=== PATIENT | female | born 1960 | race Caucasian/White ===

== ENCOUNTER 2018-03-28 05:17 | Emergency (ER) | payer MEDICAID ==
[~2018-03-28] VITALS: Ht 165.1 cm; Wt 54.4 kg
[2018-03-28 05:22] VITALS: BP 106/69
[2018-03-28] MEDS ORDERED: LEVO100T8 PO (06:08)
[2018-03-28] MEDS ORDERED: BUPR75TA9 PO (06:08)
[2018-03-28] MEDS ORDERED: METH2.5T3 PO (06:08)
[2018-03-28] MEDS ORDERED: HYDR-4683 PO (06:08)
[2018-03-28] MEDS ORDERED: CLON2TAB6 PO (06:08)
[2018-03-28] MEDS ORDERED: AMPH20TA20 PO (06:08)
[2018-03-28] MEDS ORDERED: HYDR-4441 OR (06:08)
[2018-03-28] MEDS ORDERED: FOLI1TAB6 PO (06:08)
[2018-03-28] MEDS ORDERED: AZAT50TA22 PO (06:08)
[2018-03-28] MEDS ORDERED: GABA-339 PO (06:08)
[2018-03-28 08:00] LABS: Eosinophils # (auto) 0.1 uL; Lymphocytes # (auto) 0.7 uL; Red Cell Distribution Width 15.9 % (11.8-14.3)
[2018-03-28 08:01] LABS: Basophils # (auto) 0 uL; Basophils % (auto) 1.1 % (0.0-2.0); Eosinophils % (auto) 2.2 % (0.0-7.0); Hematocrit 37.2 % (36.0-46.0); Lymphocytes % (auto) 17.2 % (10.0-50.0); Mean Corpuscular Hemoglobin 41.9 pg (28.0-32.0); Monocytes # (auto) 0.2 uL; Monocytes % (auto) 6.2 % (0.0-12.0); Neutrophils % (auto) 73.3 % (37.0-80.0); Platelet Count (auto) 331 10^3/uL (140-450); Red Blood Cells 3.58 10^6/uL (4.0-5.20)
[2018-03-28 08:13] LABS: Alanine Aminotransferase 14 U/L (13-56); Albumin 3.8 g/dL (3.4-5.0); Anion Gap 8 (5-15); Aspartate Aminotransferase 18 U/L (15-37); BUN/Creatinine Ratio 30.2; Blood Alcohol < 3.0 mg/dL (0-5); Blood Urea Nitrogen 26 mg/dL (7-18); Carbon Dioxide 24 mmol/L (21-32); Chloride 103 mmol/L (98-107); GFR African American 87 mL/min; GFR Non-African American 72 mL/min; Glucose 90 mg/dL (74-106); INR 1.03 (0.9-1.15); Magnesium 2.2 mg/dL (1.6-2.6); Partial Thromboplastin Time 23.4 sec (23.78-33.04); Potassium 3.7 mmol/L (3.5-5.1); Sodium 135 mmol/L (136-145)
[2018-03-28 08:14] LABS: Mean Corpuscular Hgb Conc. 40.3 g/dL (32.0-36.0); White Blood Cell 4.1 10^3/uL (4.4-10.8)
[2018-03-28 08:21] LABS: Alkaline Phosphatase 65 U/L (45-117); Bilirubin, Total 0.7 mg/dL (0.2-1.0); Total Protein 8.7 g/dL (6.4-8.2)
== END 2018-03-28 10:21 | disposition left against medical advice (07) ==
LOC: ER 05:17 → EDBD 05:17 → ER 10:20
DX: R40.4 Transient alteration of awareness (principal); Z53.21 Procedure and treatment not carried out due to patient leaving prior to being seen by health care provider
CPT/HCPCS: 36415; 70450; 71045; 80053; 80320; 83605; 83735; 84484; 85025; 85610; 85730

== ENCOUNTER 2019-10-11 09:11 | Inpatient (IN) | payer MEDICAID ==
[~2019-10-11] VITALS: Ht 162.6 cm; Wt 52.0 kg
[~2019-10-11 09:11] MED LIST: AMPH20TA20 PO; AZAT50TA22 PO; BUPR75TA9 PO; CLON-707 PO; FOLI1TAB6 PO; GABA-339 PO; HYDR-4188 OR; HYDR-4833 PO; LEVO100T8 PO; METH2.5T PO
[2019-10-11] MEDS ORDERED: SODIUM CHLORIDE 0.9% 500 ML IVB ONE (09:55)
[2019-10-11] MEDS ORDERED: SODIUM CHLORIDE 0.9% 1,000 ML IV ONE (09:55)
[2019-10-11 09:58] LABS: Basophils # (auto) 0.1 10 ^3/uL (0-0.2); Basophils % (auto) 0.9 % (0.0-2.0); Eosinophils # (auto) 0 10 ^3/uL (0-0.8); Eosinophils % (auto) 0.6 % (0.0-7.0); Hemoglobin 12.6 g/dL (12.2-16.2); Lymphocytes # (auto) 1.8 10 ^3/uL (0.4-5.4); Lymphocytes % (auto) 27.7 % (10.0-50.0); Mean Corpuscular Hemoglobin 28.3 pg (28.0-32.0); Mean Corpuscular Hgb Conc. 32.3 g/dL (32.0-36.0); Mean Corpuscular Volume 87.6 fL (80.0-100.0); Monocytes # (auto) 0.4 10 ^3/uL (0-1.3); Monocytes % (auto) 6.8 % (0.0-12.0); Neutrophils # (auto) 4.2 10 ^3/uL (1.6-8.6); Nucleated Red Blood Cells % 0.2 %; Platelet Count (auto) 360 10^3/uL (140-450); Red Blood Cells 4.46 10^6/uL (4.0-5.20); White Blood Cell 6.6 10^3/uL (4.4-10.8)
[2019-10-11 10:11] LABS: INR 1.21 (0.9-1.15); Partial Thromboplastin Time 26.4 sec (23.0-31.2)
[2019-10-11 10:16] LABS: Albumin 3.2 g/dL (3.4-5.0); Calcium 9.1 mg/dL (8.5-10.1); Magnesium 2.1 mg/dL (1.6-2.6); Potassium 3.6 mmol/L (3.5-5.1)
[2019-10-11 10:21] LABS: BUN/Creatinine Ratio 22.6; Bilirubin, Total 0.6 mg/dL (0.2-1.0); Total Protein 6.8 g/dL (6.4-8.2)
[2019-10-11 10:36] LABS: Urine Bacteria NONE SEEN /hpf (None Seen); Urine Blood Negative /uL (Negative); Urine Mucus FEW (None Seen); Urine Specific Gravity 1.018 (1.001-1.035); Urine WBC 8 /hpf (0 - 5)
[2019-10-11] MEDS ORDERED: cefTRIAXone 1GM/50ML D5W 50 ML IV ONE (11:30)
[2019-10-11] MEDS ORDERED: MORPHINE SULF INJ 2 MG/ML SYRINGE 1ML IV PRN (17:15)
[2019-10-11] MEDS ORDERED: NITROGLYCERIN 0.4 MG SL TAB SL PRN (17:15)
[2019-10-11] MEDS: SODIUM CHLORIDE 0.9% 1,000 ML IV SCH (17:59)
[2019-10-11] MEDS ORDERED: ONDANSETRON HCL 4 MG/2 ML VIAL IV PRN (22:15)
[2019-10-12] MEDS: PANTOPRAZOLE 40 MG/10 ML VIAL INJ IV SCH ×3 (00:04→21:17)
--- NOTE | 2019-10-12 00:04 | NUR ---
Telemetry admit from [facility] admitted to Telemetry unit after SBAR received. Patient oriented to Javier Wong, primary RN, unit, room, bed, and unit policies regarding patient care and visiting hours. Patient now on continuous telemetry monitoring, tele box # [89] and telemetry reading on arrival to unit is [SR 60]. Patient weighed by bedscale and encouraged to call if they need something. All questions and concerns addressed, patient verbalized understanding. Note: []
[2019-10-12] MEDS: ATORVASTATIN 20 MG TAB PO SCH ×2 (00:05→21:17)
[2019-10-12] MEDS: GABAPENTIN 300 MG CAP PO SCH ×2 (00:05→21:17)
[2019-10-12 00:06] VITALS: BP 134/76
[2019-10-12] MEDS: HYDROcodone-ACET 5/325MG TAB PO PRN ×2 (00:06→21:43)
[2019-10-12] MEDS ORDERED: ROPI1TAB2 PO (00:49)
[2019-10-12] MEDS ORDERED: TRAZ1TAB12 PO (00:49)
--- NOTE | 2019-10-12 03:05 | NUR ---
PATIENT SLEEPING. NO S/S OF DISTRESS NOTED. CONTINUE CARE
[2019-10-12] MEDS: SODIUM CHLORIDE 0.9% 1,000 ML IV SCH ×2 (04:15→13:44)
[2019-10-12 05:00] VITALS: BP 129/64
[2019-10-12 06:04] LABS: Basophils # (auto) 0 10 ^3/uL (0-0.2); Basophils % (auto) 0.7 % (0.0-2.0); Eosinophils # (auto) 0.1 10 ^3/uL (0-0.8); Eosinophils % (auto) 1.7 % (0.0-7.0); Hematocrit 31.8 % (36.0-46.0); Hemoglobin 10.6 g/dL (12.2-16.2); Lymphocytes # (auto) 2.2 10 ^3/uL (0.4-5.4); Lymphocytes % (auto) 31.6 % (10.0-50.0); Mean Corpuscular Hemoglobin 29.2 pg (28.0-32.0); Mean Corpuscular Hgb Conc. 33.5 g/dL (32.0-36.0); Mean Corpuscular Volume 87.2 fL (80.0-100.0); Monocytes # (auto) 0.5 10 ^3/uL (0-1.3); Monocytes % (auto) 8.1 % (0.0-12.0); Neutrophils % (auto) 57.9 % (37.0-80.0); Nucleated Red Blood Cells % 0.1 %; Platelet Count (auto) 300 10^3/uL (140-450); Red Blood Cells 3.64 10^6/uL (4.0-5.20); Red Cell Distribution Width 15.6 % (11.8-14.3); White Blood Cell 6.8 10^3/uL (4.4-10.8)
[2019-10-12 06:24] LABS: Calcium 8.3 mg/dL (8.5-10.1)
[2019-10-12 06:43] LABS: Potassium 2.7 mmol/L (3.5-5.1)
--- NOTE | 2019-10-12 06:46 | NUR ---
RECEIVED CRITICAL FROM [facility] JORGE LUIS, POTASSIUM 2.7, WILL CALL MD CLEANING. CONTINUE TO MONITOR.
--- NOTE | 2019-10-12 06:47 | NUR ---
Called/paged Dr. CLEANING called re:PATIENT'S CRITICAL POTASSIUM 2.7. Waiting for call back. Continue care.
--- NOTE | 2019-10-12 06:56 | NUR ---
MD returned call Dr. CRESPO ANSWERED call, updated on patient status and reason for call, orders received. POTASSIUM 40MEG IV AND 40 MEQ PO. ORDER READ BACK. Continue care.
[2019-10-12] MEDS ORDERED: POTASSIUM CHL 20 Meq TABLET PO ONE (07:30)
[2019-10-12] MEDS: POTASSIUM CHL 20MEQ/100ML 100 ML IV SCH ×2 (08:19→11:30)
[2019-10-12] MEDS: ASPirin 81 mg TAB PO SCH (08:21)
[2019-10-12 09:00] VITALS: BP 142/74
[2019-10-12] MEDS ORDERED: INFLUENZA QUAD 2020-2021 0.5 ML SYRG IM ONE (10:45)
--- NOTE | 2019-10-12 11:30 | NUR ---
Nutrition Consult Will monitor po intake and tolerance of intake Est energy needs [id number] kcal (30-35 kcal/kg BW 51.7kg) Est protein needs 41-52g (0.8-1g/kg BW 51.7kg) Will reassess prn. Addendum: 10/12/19 at [address] Amended: Links added.
[2019-10-12 13:00] VITALS: BP 126/66
[2019-10-12] MEDS: levoFLOXacin 500MG 100 ML IV SCH (13:00)
--- NOTE | 2019-10-12 13:35 | NUR ---
Vero covid -19 swab collect and sent to lab.
[2019-10-12 14:40] LABS: Potassium 3.5 mmol/L (3.5-5.1)
[2019-10-12 14:42] LABS: Magnesium 1.9 mg/dL (1.6-2.6)
[2019-10-12] MEDS: SUCRALFATE 1 GM/10 ML ORAL SUSP PO SCH ×2 (16:51→21:17)
--- NOTE | 2019-10-12 16:53 | NUR ---
DOCTOR HERMILA AT BEDSIDE DISCUSSING POC WITH PATIENT, PATIENT VERBALIZES UNDERSTANDING AND AGREES WITH POC.
--- NOTE | 2019-10-12 16:56 | NUR ---
Doctor Jesus mar, per Md patient has cardiac clearance for EGD.
[2019-10-12 17:00] VITALS: BP 143/89
--- NOTE | 2019-10-12 20:00 | NUR ---
Opening Shift Note Assumed care of patient, awake and alert. No S/S of distress/SOB or pain. Instructed on POC and to call for assist PRN, will continue to monitor for changes Q1hr and PRN.Advised no food or drink after midnight.
[2019-10-12 21:49] VITALS: BP 148/84
[2019-10-13] MEDS: SODIUM CHLORIDE 0.9% 1,000 ML IV SCH (00:37)
[2019-10-13 05:05] VITALS: BP 132/76
[2019-10-13] MEDS: SUCRALFATE 1 GM/10 ML ORAL SUSP PO SCH ×2 (05:56→11:22)
[2019-10-13 06:05] LABS: Basophils # (auto) 0 10 ^3/uL (0-0.2); Basophils % (auto) 0.8 % (0.0-2.0); Eosinophils # (auto) 0.3 10 ^3/uL (0-0.8); Eosinophils % (auto) 5.1 % (0.0-7.0); Hematocrit 33.2 % (36.0-46.0); Hemoglobin 11.2 g/dL (12.2-16.2); Lymphocytes # (auto) 1.7 10 ^3/uL (0.4-5.4); Lymphocytes % (auto) 30.7 % (10.0-50.0); Mean Corpuscular Hemoglobin 28.5 pg (28.0-32.0); Mean Corpuscular Hgb Conc. 33.7 g/dL (32.0-36.0); Mean Corpuscular Volume 84.7 fL (80.0-100.0); Monocytes # (auto) 0.4 10 ^3/uL (0-1.3); Neutrophils # (auto) 3.1 10 ^3/uL (1.6-8.6); Neutrophils % (auto) 56.4 % (37.0-80.0); Nucleated Red Blood Cells % 0.2 %; Platelet Count (auto) 267 10^3/uL (140-450); Red Blood Cells 3.91 10^6/uL (4.0-5.20); Red Cell Distribution Width 15.3 % (11.8-14.3); White Blood Cell 5.4 10^3/uL (4.4-10.8)
[2019-10-13 06:25] LABS: BUN/Creatinine Ratio 15.3; Calcium 8.2 mg/dL (8.5-10.1); Magnesium 1.9 mg/dL (1.6-2.6)
[2019-10-13 06:32] LABS: Potassium 2.9 mmol/L (3.5-5.1)
--- NOTE | 2019-10-13 06:33 | NUR ---
Called/paged Hermilo Lott called re:patients pot. is 2.9 . Waiting for call back. Continue care.
--- NOTE | 2019-10-13 06:39 | NUR ---
returned call Carlos Orta returned call, updated on patient status and reason for call, orders received of potassium rider 20meq x one. Continue care.
[2019-10-13] MEDS ORDERED: POTASSIUM CHL 20MEQ/100ML 100 ML IV ONE (06:45)
--- NOTE | 2019-10-13 07:21 | NUR ---
Care report given to Isa Zacarias, patient is resting NPO maintained.
--- NOTE | 2019-10-13 07:23 | NUR ---
Care report given to Jerilyn Zacarias, patient is resting NPO maintain ed.
[2019-10-13 09:00] VITALS: BP 126/72
--- NOTE | 2019-10-13 09:15 | NUR ---
PATIENT TAKEN DOWN TO OR FOR PROCEDURE.NO S/S OF DISTRESS NOTED.
[2019-10-13] MEDS ORDERED: LIDOCAINE VISCOUS 2% 15ML UD ONE (09:38)
[2019-10-13] MEDS ORDERED: SODIUM CHLORIDE LOCK 10 ML ONE (09:38)
[2019-10-13] MEDS ORDERED: NALOXONE HCL 0.4 MG/ML VIAL ONE (09:38)
[2019-10-13] MEDS ORDERED: FLUMAZENIL 0.1 MG/ML INJ 10ML MDV IV ONE (09:38)
[2019-10-13] MEDS ORDERED: diphenhdrAMINE HCL 50 MG/1 ML VL ONE (09:39)
[2019-10-13] MEDS: fentaNYL CITRATE 100 MCG/2 ML VL ONE ×2 (09:54→09:59)
[2019-10-13] MEDS: MIDAZOLAM HCL 5 MG/ML-1ML VIAL ONE ×2 (09:54→09:59)
[2019-10-13] MEDS: ASPirin 81 mg TAB PO SCH (10:00)
[2019-10-13] MEDS ORDERED: ATOR20TA50 PO (10:09)
[2019-10-13] MEDS ORDERED: PANT40T PO (10:09)
[2019-10-13] MEDS ORDERED: SUCR1SUS10 PO (10:09)
--- NOTE | 2019-10-13 10:45 | NUR ---
Patient back from OR. No S/S of distress noted.
--- NOTE | 2019-10-13 10:50 | NUR ---
SPOKE WITH DOCTOR HERMILA INFORMED THAT STRESS TEST WAS NOT DONE, PER MD PATIENT TO HAVE STRESS TEST OUT PATIENT SCHEDULE BY PATIENT.PER MD PATIENT OKAY TO BE D/C.
[2019-10-13] MEDS: levoFLOXacin 500MG 100 ML IV SCH (11:22)
[2019-10-13 12:00] VITALS: BP 159/94
--- NOTE | 2019-10-13 15:33 | NUR ---
Discharge instructions given as ordered. Encourage to follow up with PMD as instructed. All questions and concerns addressed. Patient verbalized understanding. Medication reconciliation form completed and copy given to patient. IV removed with catheter intact, pressure dressing applied. Telemetry unit returned to ICU. Patient taken to vehicle via wheelchair with all personal belongings, accompanied by staff. Family members waiting in front lobby for transportation home. No distress noted at time of departure.
[2019-10-13] MEDS ORDERED: PANTOPRAZOLE 40 MG TAB PO SCH (22:00)
== END 2019-10-13 15:26 | disposition home or self-care (01) | DRG 241 ==
LOC: EDBD 09:11 → ER 09:11 → TELE 09:12 → TELE-WESTW 23:22
PROVIDERS: ADMIT Hospitalist; ATTEND Hospitalist
PROC: 0DB68ZX Excision of Stomach, Via Natural or Artificial Opening Endoscopic, Diagnostic (ICD-10-PCS; principal; 2019-10-13 09:52)
DX: K29.71 Gastritis, unspecified, with bleeding (principal); M06.9 Rheumatoid arthritis, unspecified; N39.0 Urinary tract infection, site not specified; E44.1 Mild protein-calorie malnutrition; Z20.828 Contact with and (suspected) exposure to other viral communicable diseases; F32.9 Major depressive disorder, single episode, unspecified; D64.9 Anemia, unspecified; E87.6 Hypokalemia; E86.1 Hypovolemia; E87.0 Hyperosmolality and hypernatremia; F17.210 Nicotine dependence, cigarettes, uncomplicated; E11.21 Type 2 diabetes mellitus with diabetic nephropathy; E05.90 Thyrotoxicosis, unspecified without thyrotoxic crisis or storm; Z68.1 Body mass index [BMI] 19.9 or less, adult; Z86.73 Personal history of transient ischemic attack (TIA), and cerebral infarction without residual deficits; Z82.49 Family history of ischemic heart disease and other diseases of the circulatory system; Z90.710 Acquired absence of both cervix and uterus; Z79.899 Other long term (current) drug therapy; N17.0 Acute kidney failure with tubular necrosis
CPT/HCPCS: 36415; 43239; 71045; 80048; 80053; 81001; 83690; 83735; 83880; 84132; 84439; 84443; 84484; 85025; 85610; 85730; 86850; 86900; 86901; 87426; 93005; 93306; 96361; 96365; 96367; 97163; C9113; G0378; J0696; J1956; J2250; J3480

== ENCOUNTER → 2019-10-24 | Emergency (ER) | payer MEDICAID ==
[~2019-10-24] VITALS: Ht 162.6 cm; Wt 49.4 kg
[~2019-10-24] MED LIST changes: -AMPH20TA20 PO; +ATOR20TA50 PO; -AZAT50TA22 PO; -CLON-707 PO; +DIPHENOXYLATE W/ATROPINE 2.5 MG TAB PO ONE; +PANT40T PO; +ROPI1TAB2 PO; +SODIUM CHLORIDE 0.9% 1,000 ML IV ONE; +SODIUM CHLORIDE 0.9% 1,000 ML IVB ONE; +SUCR1SUS10 PO; +TRAZ1TAB12 PO
[2019-10-24 13:14] LABS: Basophils # (auto) 0.1 10 ^3/uL (0-0.2); Basophils % (auto) 1.1 % (0.0-2.0); Eosinophils # (auto) 0.2 10 ^3/uL (0-0.8); Eosinophils % (auto) 3.6 % (0.0-7.0); Hematocrit 38.2 % (36.0-46.0); Hemoglobin 12.3 g/dL (12.2-16.2); Lymphocytes # (auto) 2.2 10 ^3/uL (0.4-5.4); Lymphocytes % (auto) 38.8 % (10.0-50.0); Mean Corpuscular Hemoglobin 27.9 pg (28.0-32.0); Mean Corpuscular Hgb Conc. 32.2 g/dL (32.0-36.0); Mean Corpuscular Volume 86.5 fL (80.0-100.0); Monocytes # (auto) 0.3 10 ^3/uL (0-1.3); Monocytes % (auto) 5.4 % (0.0-12.0); Neutrophils # (auto) 2.9 10 ^3/uL (1.6-8.6); Neutrophils % (auto) 51.1 % (37.0-80.0); Nucleated Red Blood Cells % 0.1 %; Platelet Count (auto) 298 10^3/uL (140-450); Red Blood Cells 4.42 10^6/uL (4.0-5.20); Red Cell Distribution Width 16.9 % (11.8-14.3); White Blood Cell 5.7 10^3/uL (4.4-10.8)
[2019-10-24 13:29] LABS: Albumin 3.5 g/dL (3.4-5.0); Calcium 9.3 mg/dL (8.5-10.1)
[2019-10-24 13:32] LABS: Bilirubin, Total 0.3 mg/dL (0.2-1.0); Total Protein 7.4 g/dL (6.4-8.2)
[2019-10-24 15:26] LABS: Amylase 35 U/L (25-115); Lipase 79 U/L (73-393); Magnesium 2.6 mg/dL (1.6-2.6)
[2019-10-24 17:16] VITALS: BP 122/98
== END | disposition home or self-care (01) ==
LOC: ER 11:59
DX: E86.0 Dehydration (principal); R19.7 Diarrhea, unspecified; F32.9 Major depressive disorder, single episode, unspecified; E78.5 Hyperlipidemia, unspecified; F17.210 Nicotine dependence, cigarettes, uncomplicated; Z86.73 Personal history of transient ischemic attack (TIA), and cerebral infarction without residual deficits; Z79.899 Other long term (current) drug therapy; Z88.8 Allergy status to other drugs, medicaments and biological substances
CPT/HCPCS: 36415; 71045; 80053; 82150; 83605; 83690; 83735; 84484; 85025; 96360; 96361; 99285; J7030

== ENCOUNTER 2019-11-01 16:15 | Emergency (ER) | payer MEDICAID ==
[~2019-11-01] VITALS: Ht 162.6 cm; Wt 54.4 kg
[~2019-11-01 16:15] MED LIST changes: -DIPHENOXYLATE W/ATROPINE 2.5 MG TAB PO ONE; -SODIUM CHLORIDE 0.9% 1,000 ML IV ONE; -SODIUM CHLORIDE 0.9% 1,000 ML IVB ONE
[2019-11-01 16:23] VITALS: BP 90/60
== END 2019-11-01 18:04 | disposition left against medical advice (07) ==
LOC: ER 16:15
DX: M54.5 Low back pain (principal); Z53.21 Procedure and treatment not carried out due to patient leaving prior to being seen by health care provider
CPT/HCPCS: 93005

== ENCOUNTER 2023-02-22 08:12 | Inpatient (IN) | payer MEDICAID ==
[~2023-02-22] VITALS: Ht 160 cm; Wt 73.5 kg
[2023-02-22] VITALS (8 sets, daily range): BP systolic 103; BP diastolic 81; PULSE 72–107; RESP 16–32; O2SAT 97–99
[~2023-02-22 08:12] MED LIST changes: -BUPR75TA9 PO; +BUPR75TA96 PO; +FOLI-119 PO; -FOLI1TAB6 PO; -ROPI1TAB2 PO; +ROPI1TAB4 PO; -SUCR1SUS10 PO; +SUCR1SUS26 PO
[2023-02-22] MEDS ORDERED: methylPREDNISolone SOD SUCC 125 MG/2 ML VL IV ONE (08:30)
[2023-02-22 08:40] LABS: Basophils # (auto) 0 10 ^3/uL (0-0.2); Eosinophils # (auto) 0 10 ^3/uL (0-0.8); Eosinophils % (auto) 0.6 % (0.0-7.0); Hemoglobin 11.6 g/dL (12.2-16.2); Lymphocytes # (auto) 0.7 10 ^3/uL (0.4-5.4); Neutrophils # (auto) 7.4 10 ^3/uL (1.6-8.6); Nucleated Red Blood Cells % 0.1 %; White Blood Cell 8.4 10^3/uL (4.4-10.8)
[2023-02-22 08:42] LABS: Basophils % (auto) 0.2 % (0.0-2.0); Hematocrit 36.5 % (36.0-46.0); Lymphocytes % (auto) 8.5 % (10.0-50.0); Mean Corpuscular Hemoglobin 21.8 pg (28.0-32.0); Mean Corpuscular Hgb Conc. 31.7 g/dL (32.0-36.0); Mean Corpuscular Volume 68.9 fL (80.0-100.0); Monocytes # (auto) 0.3 10 ^3/uL (0-1.3); Monocytes % (auto) 3.1 % (0.0-12.0); Neutrophils % (auto) 87.6 % (37.0-80.0); Red Cell Distribution Width 20.5 % (11.8-14.3)
[2023-02-22 08:52] LABS: Anisocytosis Slight; Hypochromia Slight; Platelet Estimate Decreased
[2023-02-22 08:53] LABS: Tear Drop Cells FEW
[2023-02-22 08:54] LABS: Chloride 104 mmol/L (98-107); Potassium 3.1 mmol/L (3.5-5.1); Sodium 137 mmol/L (136-145)
[2023-02-22 08:55] LABS: Anion Gap 12 (5-15); Calcium 8.6 mg/dL (8.5-10.1); Carbon Dioxide 21 mmol/L (20-30)
[2023-02-22 09:00] LABS: BUN/Creatinine Ratio 24.4 (10.0-20.0); Blood Urea Nitrogen 20 mg/dL (9-23); Glucose 149 mg/dL (74-106)
[2023-02-22 09:13] LABS: Magnesium 1.4 mg/dL (1.6-2.6)
[2023-02-22] MEDS ORDERED: ACETAMINOPHEN 500 MG TAB PO ONE (09:15)
[2023-02-22] MEDS ORDERED: levoFLOXacin 500MG 100 ML IV ONE (11:15)
[2023-02-22 11:16] LABS: COVID19 ANTIGEN SOFIA FIA NEGATIVE (NEGATIVE); Rapid Influenza A Negative (Negative); Rapid Influenza B Negative (Negative)
[2023-02-22] MEDS ORDERED: POTASSIUM EFFERVESENT TAB 25 MEQ PO ONE (11:30)
[2023-02-22] MEDS ORDERED: ALBUTEROL SULF 2.5 MG/0.5ML(0.5%) NEB SOLN NEB PRN (11:30)
[2023-02-22] MEDS ORDERED: cefTRIAXone 1GM/50ML D5W 50 ML IV ONE (11:30)
[2023-02-22] MEDS ORDERED: PANTOPRAZOLE 40 MG/10 ML VIAL INJ IV ONE (11:30)
[2023-02-22] MEDS ORDERED: AZITHROMYCIN 500MG/ 250ML 250 ML IV ONE (11:30)
[2023-02-22] MEDS ORDERED: MORPHINE SULFATE INJ 2 MG/ml SYRG IV PRN (11:45)
[2023-02-22] MEDS ORDERED: NITROGLYCERIN 0.4 MG SL TAB SL PRN (11:45)
[2023-02-22] MEDS: SODIUM CHLORIDE 0.9% 1,000 ML IV SCH (12:29)
[2023-02-22] MEDS: SUCRALFATE 1 GM/10 ML ORAL SUSP PO SCH ×2 (12:31→18:16)
[2023-02-22 12:53] LABS: Base Excess -5.9 mmol/L (-2.0-2.0)
[2023-02-22] MEDS: MAGNESIUM SULFATE 1GM/100ML 100 ML IV SCH ×3 (13:17→14:59)
[2023-02-22] MEDS: ALBUTEROL SULF 2.5 MG/0.5ML(0.5%) NEB SOLN NEB SCH ×3 (13:49→22:33)
[2023-02-22] MEDS: IPRATROPIUM BROM 0.5 MG/2.5ML INH SOL NEB SCH ×3 (13:50→22:33)
[2023-02-22] MEDS: ACETAMINOPHEN 325 MG TAB PO PRN (15:48)
[2023-02-22] MEDS: methylPREDNISolone SOD SUCC 40 MG/ML VL IV SCH (21:25)
[2023-02-22] MEDS: ATORVASTATIN 20 MG TAB PO SCH (21:26)
[2023-02-22] MEDS ORDERED: ROPINIROLE HYDROCHLORIDE 1 MG PO SCH (22:00)
[2023-02-22] MEDS ORDERED: traZODone HCL 50 MG TAB PO SCH (22:00)
[2023-02-22] MEDS ORDERED: GABAPENTIN 300 MG CAP PO SCH (22:00)
[2023-02-23] VITALS (20 sets, daily range): BP systolic 106–146; BP diastolic 68–81; PULSE 90–114; RESP 14–22; TEMP 97.9–98.3; O2SAT 95–100
[2023-02-23] MEDS: ALBUTEROL SULF 2.5 MG/0.5ML(0.5%) NEB SOLN NEB SCH ×6 (02:23→22:35)
[2023-02-23] MEDS: IPRATROPIUM BROM 0.5 MG/2.5ML INH SOL NEB SCH ×6 (02:23→22:36)
[2023-02-23] MEDS: SODIUM CHLORIDE 0.9% 1,000 ML IV SCH ×2 (04:25→11:26)
[2023-02-23 05:13] LABS: Basophils # (auto) 0 10 ^3/uL (0-0.2); Eosinophils # (auto) 0 10 ^3/uL (0-0.8); Hemoglobin 10.3 g/dL (12.2-16.2); Mean Corpuscular Hemoglobin 21.8 pg (28.0-32.0); Mean Corpuscular Hgb Conc. 32.1 g/dL (32.0-36.0); Neutrophils # (auto) 9.6 10 ^3/uL (1.6-8.6); Neutrophils % (auto) 92.9 % (37.0-80.0); Nucleated Red Blood Cells % 0.1 %
[2023-02-23 05:15] LABS: Hematocrit 32.1 % (36.0-46.0); Lymphocytes # (auto) 0.5 10 ^3/uL (0.4-5.4); Lymphocytes % (auto) 4.7 % (10.0-50.0); Monocytes # (auto) 0.2 10 ^3/uL (0-1.3); Monocytes % (auto) 2.4 % (0.0-12.0); Red Blood Cells 4.72 10^6/uL (4.0-5.20); Red Cell Distribution Width 20.4 % (11.8-14.3); White Blood Cell 10.3 10^3/uL (4.4-10.8)
[2023-02-23 05:37] LABS: Alanine Aminotransferase 17 U/L (7-40); Albumin 3.8 g/dL (3.2-4.8); Alkaline Phosphatase 55 U/L (46-116); Anion Gap 8 (5-15); Aspartate Aminotransferase 33 U/L (13-40); BUN/Creatinine Ratio 25.7 (10.0-20.0); Bilirubin, Total 0.3 mg/dL (0.2-1.0); Blood Urea Nitrogen 18 mg/dL (9-23); Calcium 8.8 mg/dL (8.5-10.1); Carbon Dioxide 24 mmol/L (20-30); Chloride 106 mmol/L (98-107); Glucose 136 mg/dL (74-106); Potassium 3.6 mmol/L (3.5-5.1); Sodium 138 mmol/L (136-145)
[2023-02-23 05:38] LABS: Total Protein 6.5 g/dL (5.7-8.2)
[2023-02-23] MEDS ORDERED: LEVOTHYROXINE SODIUM 100 MCG TAB PO SCH (07:00)
[2023-02-23] MEDS: methylPREDNISolone SOD SUCC 40 MG/ML VL IV SCH ×2 (08:24→21:37)
[2023-02-23] MEDS: SUCRALFATE 1 GM/10 ML ORAL SUSP PO SCH ×3 (08:24→17:47)
[2023-02-23] MEDS: PANTOPRAZOLE 40 MG/10 ML VIAL INJ IV SCH (08:24)
[2023-02-23] MEDS: ENOXAPARIN SOD 40 MG/0.4 ML SYRINGE SC SCH (08:25)
[2023-02-23] MEDS: FOLIC ACID 1 MG TAB PO SCH (08:25)
[2023-02-23] MEDS: buPROPion HCL 75 MG TAB PO SCH (08:27)
[2023-02-23] MEDS ORDERED: cefTRIAXone 1GM/50ML D5W 50 ML IV SCH (09:00)
[2023-02-23] MEDS ORDERED: AZITHROMYCIN 500MG/ 250ML 250 ML IV SCH (10:00)
[2023-02-23] MEDS: ACETAMINOPHEN 325 MG TAB PO PRN ×3 (11:26→22:02)
[2023-02-23] MEDS ORDERED: DULO20CA PO (11:55)
[2023-02-23] MEDS ORDERED: DIPH-753 PO (11:55)
[2023-02-23] MEDS ORDERED: HYDR50TA69 PO (11:55)
[2023-02-23] MEDS ORDERED: CHOL20007 PO (11:55)
[2023-02-23] MEDS ORDERED: ROSU20TA14 PO (11:55)
[2023-02-23] MEDS ORDERED: VANCOMYCIN PER PHARMACY 0 MG IV SCH (12:45)
[2023-02-23] MEDS ORDERED: MAGNESIUM SULFATE 1GM/100ML 100 ML IV ONE (13:00)
[2023-02-23 14:12] LABS: Folate (Folic Acid) 16.54 ng/mL (>5.38)
[2023-02-23] MEDS ORDERED: IOHEXOL 350 MG/ML 100ML IJ ONE (14:33)
[2023-02-23] MEDS ORDERED: VANCOMYCIN 1GM/200ML 200 ML IV ONE (15:30)
[2023-02-23] MEDS: CEFEPIME 1GM/ 50ML 50 ML IV SCH ×2 (17:47→21:37)
[2023-02-23] MEDS ORDERED: LORazepam 2MG/ML-1ML VIAL IV PRN (19:45)
[2023-02-23] MEDS: PRAMIPEXOLE DIHYDROCHLORIDE MO 0.25 MG TAB PO SCH (21:37)
[2023-02-23 21:38] LABS: % Iron Saturation 7.4 % (15-50)
[2023-02-23] MEDS: ATORVASTATIN 20 MG TAB PO SCH (21:38)
[2023-02-23] MEDS: ROPINIROLE HYDROCHLORIDE 1 MG PO SCH (21:38)
[2023-02-23] MEDS: BUDESONIDE (INHALATION) 0.5 MG/2 ML NEB NEB SCH (22:35)
[2023-02-24] VITALS (12 sets, daily range): BP systolic 115–153; BP diastolic 54–81; PULSE 86–117; RESP 16–21; TEMP 98.1–98.6; O2SAT 81–100
[2023-02-24] MEDS: ALBUTEROL SULF 2.5 MG/0.5ML(0.5%) NEB SOLN NEB SCH ×4 (02:28→19:21)
[2023-02-24] MEDS: IPRATROPIUM BROM 0.5 MG/2.5ML INH SOL NEB SCH ×4 (02:28→19:21)
[2023-02-24] MEDS: CEFEPIME 1GM/ 50ML 50 ML IV SCH ×3 (05:45→21:38)
[2023-02-24] MEDS: ROPINIROLE HYDROCHLORIDE 1 MG PO SCH ×3 (05:46→21:51)
[2023-02-24] MEDS: VANCOMYCIN 1GM/200ML 200 ML IV SCH ×2 (05:46→19:38)
[2023-02-24] MEDS: PRAMIPEXOLE DIHYDROCHLORIDE MO 0.25 MG TAB PO SCH ×3 (05:56→21:38)
[2023-02-24 08:06] LABS: Free Thyroxine Index 3.5 (1.2-4.9); Thyroxine (T4) 10.7 ug/dL (4.5-12.0)
[2023-02-24] MEDS: SUCRALFATE 1 GM/10 ML ORAL SUSP PO SCH ×3 (08:30→17:56)
[2023-02-24] MEDS: FOLIC ACID 1 MG TAB PO SCH (10:15)
[2023-02-24] MEDS: buPROPion HCL 75 MG TAB PO SCH (10:16)
[2023-02-24] MEDS: ENOXAPARIN SOD 40 MG/0.4 ML SYRINGE SC SCH (10:17)
[2023-02-24] MEDS: methylPREDNISolone SOD SUCC 40 MG/ML VL IV SCH (10:18)
[2023-02-24] MEDS: PANTOPRAZOLE 40 MG/10 ML VIAL INJ IV SCH (10:18)
[2023-02-24] MEDS: BUDESONIDE (INHALATION) 0.5 MG/2 ML NEB NEB SCH ×2 (11:05→19:21)
[2023-02-24] MEDS: FERROUS SULFATE 325mg EC TAB PO SCH (17:56)
[2023-02-24] MEDS: ATORVASTATIN 20 MG TAB PO SCH (21:37)
[2023-02-25] VITALS (16 sets, daily range): BP systolic 122–145; BP diastolic 71–80; PULSE 69–99; RESP 16–20; TEMP 98–98.4; O2SAT 93–100
[2023-02-25] MEDS: ALBUTEROL SULF 2.5 MG/0.5ML(0.5%) NEB SOLN NEB SCH ×4 (00:32→19:09)
[2023-02-25] MEDS: IPRATROPIUM BROM 0.5 MG/2.5ML INH SOL NEB SCH ×4 (00:32→19:09)
[2023-02-25] MEDS: VANCOMYCIN 1GM/200ML 200 ML IV SCH ×3 (06:00→17:30)
[2023-02-25] MEDS: PRAMIPEXOLE DIHYDROCHLORIDE MO 0.25 MG TAB PO SCH ×3 (06:17→22:08)
[2023-02-25] MEDS: CEFEPIME 1GM/ 50ML 50 ML IV SCH ×3 (06:17→22:08)
[2023-02-25] MEDS: ROPINIROLE HYDROCHLORIDE 1 MG PO SCH ×3 (06:18→22:11)
[2023-02-25] MEDS: BUDESONIDE (INHALATION) 0.5 MG/2 ML NEB NEB SCH ×2 (06:41→19:09)
[2023-02-25] MEDS: FOLIC ACID 1 MG TAB PO SCH (09:29)
[2023-02-25] MEDS: FERROUS SULFATE 325mg EC TAB PO SCH ×2 (09:29→17:27)
[2023-02-25] MEDS: buPROPion HCL 75 MG TAB PO SCH (09:29)
[2023-02-25] MEDS: PANTOPRAZOLE 40 MG/10 ML VIAL INJ IV SCH (09:30)
[2023-02-25] MEDS: methylPREDNISolone SOD SUCC 40 MG/ML VL IV SCH (09:30)
[2023-02-25] MEDS: ENOXAPARIN SOD 40 MG/0.4 ML SYRINGE SC SCH (09:30)
[2023-02-25] MEDS: SUCRALFATE 1 GM/10 ML ORAL SUSP PO SCH ×3 (09:30→17:28)
[2023-02-25] MEDS: ATORVASTATIN 20 MG TAB PO SCH (22:08)
[2023-02-26] VITALS (16 sets, daily range): BP systolic 136–151; BP diastolic 79–88; PULSE 76–110; RESP 16–25; TEMP 97.6–98.7; O2SAT 90–100
[2023-02-26] MEDS: ALBUTEROL SULF 2.5 MG/0.5ML(0.5%) NEB SOLN NEB SCH ×4 (00:14→19:30)
[2023-02-26] MEDS: IPRATROPIUM BROM 0.5 MG/2.5ML INH SOL NEB SCH ×4 (00:14→19:30)
[2023-02-26] MEDS: ACETAMINOPHEN 325 MG TAB PO PRN ×2 (04:02→15:24)
[2023-02-26] MEDS: PRAMIPEXOLE DIHYDROCHLORIDE MO 0.25 MG TAB PO SCH ×3 (06:01→22:02)
[2023-02-26] MEDS: CEFEPIME 1GM/ 50ML 50 ML IV SCH ×3 (06:01→22:22)
[2023-02-26] MEDS: ROPINIROLE HYDROCHLORIDE 1 MG PO SCH ×3 (06:02→22:15)
[2023-02-26] MEDS: BUDESONIDE (INHALATION) 0.5 MG/2 ML NEB NEB SCH ×2 (06:50→22:25)
[2023-02-26] MEDS: ENOXAPARIN SOD 40 MG/0.4 ML SYRINGE SC SCH (08:43)
[2023-02-26] MEDS: methylPREDNISolone SOD SUCC 40 MG/ML VL IV SCH (08:44)
[2023-02-26] MEDS: FOLIC ACID 1 MG TAB PO SCH (08:44)
[2023-02-26] MEDS: SUCRALFATE 1 GM/10 ML ORAL SUSP PO SCH ×3 (08:44→17:56)
[2023-02-26] MEDS: buPROPion HCL 75 MG TAB PO SCH (08:44)
[2023-02-26] MEDS: PANTOPRAZOLE 40 MG/10 ML VIAL INJ IV SCH (08:44)
[2023-02-26] MEDS: FERROUS SULFATE 325mg EC TAB PO SCH ×2 (08:44→17:56)
[2023-02-26 09:38] LABS: Hemoglobin 9.5 g/dL (12.2-16.2)
[2023-02-26 09:41] LABS: Hematocrit 29.9 % (36.0-46.0); Mean Corpuscular Hemoglobin 21.8 pg (28.0-32.0); Mean Corpuscular Hgb Conc. 31.6 g/dL (32.0-36.0); Mean Corpuscular Volume 68.9 fL (80.0-100.0); Red Blood Cells 4.35 10^6/uL (4.0-5.20); White Blood Cell 10.1 10^3/uL (4.4-10.8)
[2023-02-26 09:48] LABS: Red Cell Distribution Width 20.4 % (11.8-14.3)
[2023-02-26 09:50] LABS: Basophils % (manual) 0 (0.0-2.0); Blast Cells 0; Promyelocytes % 0; Reactive Lymphocytes 0
[2023-02-26 10:05] LABS: Chloride 108 mmol/L (98-107); Potassium 3.5 mmol/L (3.5-5.1); Sodium 139 mmol/L (136-145)
[2023-02-26 10:06] LABS: Anion Gap 5 (5-15); Calcium 8.8 mg/dL (8.5-10.1); Carbon Dioxide 26 mmol/L (20-30)
[2023-02-26 10:11] LABS: Blood Urea Nitrogen 18 mg/dL (9-23); Glucose 109 mg/dL (74-106)
[2023-02-26] MEDS: VANCOMYCIN 1GM/200ML 200 ML IV SCH (11:16)
[2023-02-26 14:25] LABS: Band Neutrophils % (manual) 2; Eosinophils % (manual) 2 (0-7); Lymphocytes % (manual) 26 (10.0-50.0); Metamyelocytes % 3; Monocytes % (manual) 6 (0-12); Myelocytes % 2
[2023-02-26 14:26] LABS: Platelet Estimate Adequate
[2023-02-26] MEDS: ATORVASTATIN 20 MG TAB PO SCH (22:02)
[2023-02-27] VITALS (13 sets, daily range): BP systolic 143–158; BP diastolic 59–93; PULSE 72–105; RESP 17–24; TEMP 97.5–98.8; O2SAT 90–100
[2023-02-27] MEDS: ALBUTEROL SULF 2.5 MG/0.5ML(0.5%) NEB SOLN NEB SCH ×4 (00:52→18:31)
[2023-02-27] MEDS: IPRATROPIUM BROM 0.5 MG/2.5ML INH SOL NEB SCH ×4 (00:52→18:31)
[2023-02-27] MEDS: VANCOMYCIN 1GM/200ML 200 ML IV SCH (05:11)
[2023-02-27 05:36] LABS: Basophils # (auto) 0 10 ^3/uL (0-0.2); Mean Corpuscular Volume 69.3 fL (80.0-100.0); Nucleated Red Blood Cells % 0.1 %; White Blood Cell 10.8 10^3/uL (4.4-10.8)
[2023-02-27 05:43] LABS: Basophils % (auto) 0.2 % (0.0-2.0); Eosinophils # (auto) 0.1 10 ^3/uL (0-0.8); Eosinophils % (auto) 1.3 % (0.0-7.0); Hematocrit 31.8 % (36.0-46.0); Hemoglobin 10.2 g/dL (12.2-16.2); Lymphocytes # (auto) 2.8 10 ^3/uL (0.4-5.4); Lymphocytes % (auto) 25.6 % (10.0-50.0); Mean Corpuscular Hemoglobin 22.2 pg (28.0-32.0); Monocytes # (auto) 0.9 10 ^3/uL (0-1.3); Monocytes % (auto) 8.3 % (0.0-12.0); Neutrophils % (auto) 64.6 % (37.0-80.0); Red Blood Cells 4.58 10^6/uL (4.0-5.20); Red Cell Distribution Width 20.2 % (11.8-14.3)
[2023-02-27] MEDS: PRAMIPEXOLE DIHYDROCHLORIDE MO 0.25 MG TAB PO SCH ×3 (05:54→21:58)
[2023-02-27] MEDS: ROPINIROLE HYDROCHLORIDE 1 MG PO SCH ×3 (05:54→22:02)
[2023-02-27] MEDS: CEFEPIME 1GM/ 50ML 50 ML IV SCH ×3 (06:00→21:58)
[2023-02-27 06:06] LABS: Anion Gap 6 (5-15); Calcium 8.6 mg/dL (8.7-10.4); Carbon Dioxide 27 mmol/L (20-30); Chloride 107 mmol/L (98-107); Potassium 3.3 mmol/L (3.5-5.1); Sodium 140 mmol/L (136-145)
[2023-02-27 06:12] LABS: BUN/Creatinine Ratio 30.9 (10.0-20.0); Blood Urea Nitrogen 17 mg/dL (9-23); Glucose 83 mg/dL (74-106)
[2023-02-27] MEDS: BUDESONIDE (INHALATION) 0.5 MG/2 ML NEB NEB SCH ×2 (06:14→18:33)
[2023-02-27] MEDS: SUCRALFATE 1 GM/10 ML ORAL SUSP PO SCH ×3 (08:32→17:36)
[2023-02-27] MEDS: PANTOPRAZOLE 40 MG/10 ML VIAL INJ IV SCH (08:32)
[2023-02-27] MEDS: FOLIC ACID 1 MG TAB PO SCH (08:33)
[2023-02-27] MEDS: methylPREDNISolone SOD SUCC 40 MG/ML VL IV SCH (08:33)
[2023-02-27] MEDS: FERROUS SULFATE 325mg EC TAB PO SCH ×2 (08:33→17:36)
[2023-02-27] MEDS: ENOXAPARIN SOD 40 MG/0.4 ML SYRINGE SC SCH (08:33)
[2023-02-27] MEDS: buPROPion HCL 75 MG TAB PO SCH (08:34)
[2023-02-27] MEDS ORDERED: POTASSIUM EFFERVESENT TAB 25 MEQ PO ONE (12:15)
[2023-02-27] MEDS: ATORVASTATIN 20 MG TAB PO SCH (21:58)
[2023-02-28] VITALS (8 sets, daily range): BP systolic 128–130; BP diastolic 76–77; PULSE 62–103; RESP 15–20; TEMP 98.6–98.7; O2SAT 90–100
[2023-02-28] MEDS: VANCOMYCIN 1GM/200ML 200 ML IV SCH (00:11)
[2023-02-28 05:23] LABS: Mean Corpuscular Volume 70.2 fL (80.0-100.0); White Blood Cell 13.1 10^3/uL (4.4-10.8)
[2023-02-28 05:26] LABS: Mean Corpuscular Hemoglobin 22.6 pg (28.0-32.0); Mean Corpuscular Hgb Conc. 32.2 g/dL (32.0-36.0); Red Blood Cells 4.84 10^6/uL (4.0-5.20)
[2023-02-28 05:32] LABS: Anion Gap 7 (5-15); Carbon Dioxide 25 mmol/L (20-30); Chloride 106 mmol/L (98-107); Potassium 3.4 mmol/L (3.5-5.1); Sodium 138 mmol/L (136-145)
[2023-02-28 05:33] LABS: Calcium 8.7 mg/dL (8.7-10.4)
[2023-02-28 05:38] LABS: BUN/Creatinine Ratio 23.5 (10.0-20.0); Blood Urea Nitrogen 12 mg/dL (9-23); Glucose 86 mg/dL (74-106)
[2023-02-28] MEDS: CEFEPIME 1GM/ 50ML 50 ML IV SCH ×2 (05:44→13:46)
[2023-02-28 05:45] LABS: Red Cell Distribution Width 20.5 % (11.8-14.3)
[2023-02-28] MEDS: ROPINIROLE HYDROCHLORIDE 1 MG PO SCH ×2 (05:45→13:46)
[2023-02-28] MEDS: PRAMIPEXOLE DIHYDROCHLORIDE MO 0.25 MG TAB PO SCH ×2 (05:45→13:46)
[2023-02-28 05:47] LABS: Basophils % (manual) 0 (0.0-2.0); Blast Cells 0; Reactive Lymphocytes 0
[2023-02-28] MEDS: BUDESONIDE (INHALATION) 0.5 MG/2 ML NEB NEB SCH (06:37)
[2023-02-28] MEDS: IPRATROPIUM BROM 0.5 MG/2.5ML INH SOL NEB SCH ×3 (06:37→11:12)
[2023-02-28] MEDS: ALBUTEROL SULF 2.5 MG/0.5ML(0.5%) NEB SOLN NEB SCH ×3 (06:37→11:12)
[2023-02-28] MEDS: PANTOPRAZOLE 40 MG/10 ML VIAL INJ IV SCH (08:30)
[2023-02-28] MEDS: ENOXAPARIN SOD 40 MG/0.4 ML SYRINGE SC SCH (08:30)
[2023-02-28] MEDS: SUCRALFATE 1 GM/10 ML ORAL SUSP PO SCH ×2 (08:30→12:00)
[2023-02-28] MEDS: buPROPion HCL 75 MG TAB PO SCH (08:31)
[2023-02-28] MEDS: FERROUS SULFATE 325mg EC TAB PO SCH (08:31)
[2023-02-28] MEDS: FOLIC ACID 1 MG TAB PO SCH (08:31)
[2023-02-28] MEDS ORDERED: predniSONE 20 MG TAB PO SCH (10:00)
[2023-02-28] MEDS ORDERED: DOXY-448 PO (11:08)
[2023-02-28 13:52] LABS: Band Neutrophils % (manual) 2; Eosinophils % (manual) 3 (0-7); Lymphocytes % (manual) 22 (10.0-50.0); Metamyelocytes % 1; Monocytes % (manual) 11 (0-12); Myelocytes % 5; Platelet Estimate Adequate; Promyelocytes % 7
[2023-02-28] MEDS ORDERED: VANCOMYCIN 1GM/200ML 200 ML IV SCH (15:00)
[2023-02-28 17:06] LABS: Vitamin B1, Whole Blood 119.5 nmol/L (66.5-200.0)
== END 2023-02-28 17:00 | disposition home health service (06) | DRG 720 ==
LOC: EDBD 08:12 → ER 08:12 → EDUNIT# 08:12 → TELE 11:42 → TELE-EAST 02-23 09:12 → EAST 02-24 16:20 → WEST WING 02-24 17:01
PROVIDERS: ADMIT Nurse Practitioner Family; ATTEND Nurse Practitioner Acute Care
DX: A41.9 Sepsis, unspecified organism (principal); J96.21 Acute and chronic respiratory failure with hypoxia; G93.41 Metabolic encephalopathy; J15.69 Pneumonia due to other Gram-negative bacteria; G93.1 Anoxic brain damage, not elsewhere classified; E87.20 Acidosis, unspecified; I27.20 Pulmonary hypertension, unspecified; J84.10 Pulmonary fibrosis, unspecified; J15.9 Unspecified bacterial pneumonia; D50.9 Iron deficiency anemia, unspecified; F19.10 Other psychoactive substance abuse, uncomplicated; K21.9 Gastro-esophageal reflux disease without esophagitis; E83.42 Hypomagnesemia; E87.6 Hypokalemia; E78.5 Hyperlipidemia, unspecified; E03.9 Hypothyroidism, unspecified; R59.0 Localized enlarged lymph nodes; Z20.822 Contact with and (suspected) exposure to COVID-19; F32.A Depression, unspecified; G25.81 Restless legs syndrome; M06.9 Rheumatoid arthritis, unspecified; Z79.82 Long term (current) use of aspirin; Z79.899 Other long term (current) drug therapy; Z80.3 Family history of malignant neoplasm of breast; Z82.5 Family history of asthma and other chronic lower respiratory diseases; Z82.49 Family history of ischemic heart disease and other diseases of the circulatory system; Z83.3 Family history of diabetes mellitus; Z86.73 Personal history of transient ischemic attack (TIA), and cerebral infarction without residual deficits; Z90.710 Acquired absence of both cervix and uterus; Z99.81 Dependence on supplemental oxygen
CPT/HCPCS: 36415; 36600; 70450; 70551; 71045; 71275; 80048; 80053; 80202; 82140; 82306; 82565; 82607; 82728; 82746; 82805; 83540; 83550; 83605; 83735; 83880; 84425; 84443; 84484; 85007; 85025; 85027; 87040; 87426; 87804; 94640; 95819; 96374; 97110; 97116; 97163; 97530; 99291; C9113; G0378

== ENCOUNTER 2023-07-22 07:54 | Inpatient (IN) | payer MEDICAID ==
[2023-07-22] VITALS (9 sets, daily range): BP systolic 117–143; BP diastolic 77–84; PULSE 18–98; RESP 18–24; TEMP 97.4–97.6; O2SAT 92–98
[~2023-07-22] VITALS: Ht 162.6 cm; Wt 77.7 kg
[~2023-07-22 07:54] MED LIST changes: +CHOL20007 PO; +DOXY-448 PO; +DULO20CA PO; -HYDR-4188 OR; +HYDR50TA69 PO; -ROPI1TAB4 PO; +ROPI1TAB78 PO; +ROSU20TA14 PO; -TRAZ1TAB12 PO
[2023-07-22 09:20] LABS: Basophils # (auto) 0 10 ^3/uL (0-0.2); Basophils % (auto) 0.4 % (0.0-2.0); Eosinophils # (auto) 0.5 10 ^3/uL (0-0.8); Eosinophils % (auto) 6.8 % (0.0-7.0); Hematocrit 47.6 % (36.0-46.0); Hemoglobin 15.1 g/dL (12.2-16.2); Lymphocytes # (auto) 1.7 10 ^3/uL (0.4-5.4); Lymphocytes % (auto) 21.9 % (10.0-50.0); Mean Corpuscular Hemoglobin 24.3 pg (28.0-32.0); Mean Corpuscular Hgb Conc. 31.6 g/dL (32.0-36.0); Mean Corpuscular Volume 76.8 fL (80.0-100.0); Monocytes # (auto) 0.5 10 ^3/uL (0-1.3); Neutrophils # (auto) 5.1 10 ^3/uL (1.6-8.6); Neutrophils % (auto) 64.9 % (37.0-80.0); Nucleated Red Blood Cells % 0.2 %; Red Cell Distribution Width 20.4 % (11.8-14.3); White Blood Cell 7.9 10^3/uL (4.4-10.8)
[2023-07-22 09:21] LABS: Chloride 111 mmol/L (98-107); Potassium 4.1 mmol/L (3.5-5.1); Sodium 140 mmol/L (136-145)
[2023-07-22 09:22] LABS: Anion Gap 6 (5-15); Carbon Dioxide 23 mmol/L (20-30)
[2023-07-22 09:23] LABS: Calcium 10.1 mg/dL (8.5-10.1)
[2023-07-22 09:27] LABS: Rapid Influenza A Negative (Negative); Rapid Influenza B Negative (Negative)
[2023-07-22 09:27] LABS: Glucose 97 mg/dL (74-106)
[2023-07-22 09:28] LABS: BUN/Creatinine Ratio 19.7 (10.0-20.0); Blood Urea Nitrogen 15 mg/dL (9-23)
[2023-07-22 09:28] LABS: COVID19 ANTIGEN SOFIA FIA NEGATIVE (NEGATIVE)
[2023-07-22] MEDS: methylPREDNISolone SOD SUCC 125 MG/2 ML VL IV ONE (09:29)
[2023-07-22] MEDS ORDERED: ONDANSETRON HCL 4 MG/2 ML VIAL IV PRN (11:15)
[2023-07-22] MEDS ORDERED: MORPHINE SULFATE INJ 2 MG/ml SYRG IV PRN (11:15)
[2023-07-22] MEDS ORDERED: DOCUSATE SOD 100 MG CAP PO PRN (11:15)
[2023-07-22] MEDS ORDERED: ACETAMINOPHEN 325 MG TAB PO PRN (11:15)
[2023-07-22] MEDS ORDERED: NITROGLYCERIN 0.4 MG SL TAB SL PRN (11:15)
[2023-07-22] MEDS ORDERED: LEVO150T10 PO (11:33)
[2023-07-22] MEDS ORDERED: ASPI-325 PO (11:33)
[2023-07-22] MEDS ORDERED: LAMO100T44 PO (11:33)
[2023-07-22] MEDS ORDERED: DULO40CA PO (11:53)
[2023-07-22] MEDS: ALBUTEROL SULF 2.5 MG/0.5ML(0.5%) NEB SOLN NEB SCH (12:05)
[2023-07-22] MEDS: IPRATROPIUM BROM 0.5 MG/2.5ML INH SOL NEB SCH (12:05)
[2023-07-22] MEDS: HYDROcodone-ACET 5/325MG TAB PO PRN (12:24)
[2023-07-22] MEDS: SODIUM CHLOR 0.9% PF (SALINE LOCK) 10ML VIAL/SYR IV SCH (18:05)
[2023-07-22] MEDS: BUDESONIDE (INHALATION) 0.5 MG/2 ML NEB NEB SCH (18:57)
[2023-07-22] MEDS: methylPREDNISolone SOD SUCC 40 MG/ML VL IV SCH (21:08)
[2023-07-22] MEDS: DOXYCYCLINE 100 MG TAB/CAP PO SCH (21:09)
[2023-07-22] MEDS: Ropinirole Hydrochloride (Ropinirole Hcl) 1 MG PO SCH (21:11)
[2023-07-23] VITALS (15 sets, daily range): BP systolic 96–140; BP diastolic 69–87; PULSE 71–94; RESP 16–20; TEMP 97.3–98.7; O2SAT 90–100
[2023-07-23] MEDS: LEVOTHYROXINE SODIUM 50 MCG TAB PO SCH (05:48)
[2023-07-23] MEDS: LEVOTHYROXINE SODIUM 100 MCG TAB PO SCH (05:48)
[2023-07-23 07:07] LABS: Alanine Aminotransferase 17 U/L (7-40); Albumin 4.1 g/dL (3.2-4.8); Alkaline Phosphatase 71 U/L (46-116); Anion Gap 5 (5-15); Aspartate Aminotransferase 13 U/L (13-40); BUN/Creatinine Ratio 29.7 (10.0-20.0); Bilirubin, Total 0.4 mg/dL (0.2-1.0); Blood Urea Nitrogen 22 mg/dL (9-23); Calcium 9.7 mg/dL (8.5-10.1); Carbon Dioxide 24 mmol/L (20-30); Chloride 109 mmol/L (98-107); Glucose 117 mg/dL (74-106); Potassium 4.1 mmol/L (3.5-5.1); Sodium 138 mmol/L (136-145)
[2023-07-23 07:16] LABS: Basophils # (auto) 0 10 ^3/uL (0-0.2); Eosinophils # (auto) 0 10 ^3/uL (0-0.8); Lymphocytes # (auto) 1.2 10 ^3/uL (0.4-5.4); Lymphocytes % (auto) 14.5 % (10.0-50.0); Mean Corpuscular Hemoglobin 25.1 pg (28.0-32.0); Monocytes # (auto) 0.3 10 ^3/uL (0-1.3); Monocytes % (auto) 3.4 % (0.0-12.0); Neutrophils # (auto) 6.9 10 ^3/uL (1.6-8.6); White Blood Cell 8.5 10^3/uL (4.4-10.8)
[2023-07-23 07:23] LABS: Basophils % (auto) 0.3 % (0.0-2.0); Hematocrit 40.9 % (36.0-46.0); Hemoglobin 13.4 g/dL (12.2-16.2); Mean Corpuscular Hgb Conc. 32.9 g/dL (32.0-36.0); Mean Corpuscular Volume 76.4 fL (80.0-100.0); Neutrophils % (auto) 81.8 % (37.0-80.0); Nucleated Red Blood Cells % 0.1 %; Red Blood Cells 5.35 10^6/uL (4.0-5.20); Red Cell Distribution Width 19.3 % (11.8-14.3)
[2023-07-23] MEDS: buPROPion HCL 75 MG TAB PO SCH (08:42)
[2023-07-23] MEDS: ASPirin-EC 81 mg tab PO SCH (08:42)
[2023-07-23] MEDS: DULOXETINE HCL 40 MG PO SCH (08:42)
[2023-07-23] MEDS: cefTRIAXone 1GM/50ML D5W 50 ML IV SCH (18:32)
[2023-07-23] MEDS: guaiFENesin-CODEINE Liq 5 ML UD GT PRN (18:39)
[2023-07-23] MEDS: AZITHROMYCIN 500MG/ 250ML 250 ML IV SCH (18:40)
[2023-07-24] VITALS (15 sets, daily range): BP systolic 125–135; BP diastolic 73–87; PULSE 70–83; RESP 14–20; TEMP 97–98.5; O2SAT 87–100
[2023-07-25] VITALS (8 sets, daily range): BP systolic 120–147; BP diastolic 74–101; PULSE 69–97; RESP 14–20; TEMP 97.6–98.3; O2SAT 90–99
[2023-07-25] MEDS ORDERED: AZIT500T66 PO (11:26)
[2023-07-25] MEDS ORDERED: PRED20TA2 PO (11:26)
[2023-07-26 09:13] LABS: Hepatitis B Surface Antigen Negative (Negative)
[2023-07-26 09:36] LABS: Hepatitis C Antibody Negative (Negative)
== END 2023-07-25 14:22 | disposition home or self-care (01) | DRG 133 ==
LOC: ER 07:54 → TELE 11:19 → TELE-EAST 15:06
PROVIDERS: ADMIT Nurse Practitioner Family; ATTEND Internal Medicine
DX: J96.21 Acute and chronic respiratory failure with hypoxia (principal); J15.69 Pneumonia due to other Gram-negative bacteria; J47.1 Bronchiectasis with (acute) exacerbation; J15.9 Unspecified bacterial pneumonia; J84.112 Idiopathic pulmonary fibrosis; J44.0 Chronic obstructive pulmonary disease with (acute) lower respiratory infection; J84.9 Interstitial pulmonary disease, unspecified; Z99.81 Dependence on supplemental oxygen; E03.9 Hypothyroidism, unspecified; E66.9 Obesity, unspecified; Z20.822 Contact with and (suspected) exposure to COVID-19; E78.5 Hyperlipidemia, unspecified; F32.A Depression, unspecified; K21.9 Gastro-esophageal reflux disease without esophagitis; Z68.30 Body mass index [BMI] 30.0-30.9, adult; K44.9 Diaphragmatic hernia without obstruction or gangrene; R59.0 Localized enlarged lymph nodes; Z86.73 Personal history of transient ischemic attack (TIA), and cerebral infarction without residual deficits; Z90.710 Acquired absence of both cervix and uterus; Z90.49 Acquired absence of other specified parts of digestive tract; Z83.3 Family history of diabetes mellitus; Z82.49 Family history of ischemic heart disease and other diseases of the circulatory system; Z88.8 Allergy status to other drugs, medicaments and biological substances; Z82.5 Family history of asthma and other chronic lower respiratory diseases; Z80.3 Family history of malignant neoplasm of breast
CPT/HCPCS: 36415; 71045; 71250; 80048; 80053; 83605; 83880; 84484; 85025; 86803; 87040; 87070; 87205; 87340; 87426; 87804; 94640; 97163; G0378

== ENCOUNTER 2023-10-18 09:44 | Inpatient (IN) | payer MEDICAID ==
[~2023-10-18] VITALS: Ht 161.5 cm; Wt 100.1 kg
[~2023-10-18 09:44] MED LIST changes: +ALBU108A5 INH; +ASPI-325 PO; +AZIT500T66 PO; +BUSP5TAB51 PO; +CLON0.5T3 PO; -DOXY-448 PO; -DULO20CA PO; +DULO30CA PO; +DULO40CA PO; +EVOL140I SC; +FLUT1INH27 INH; +GEMF-66 PO; +LAMO100T44 PO; +LEVA3NEB NEB; -LEVO100T8 PO; +LEVO150T10 PO; +ONDA-188 PO; -PANT40T PO; +PRED20TA2 PO; -SUCR1SUS26 PO; +TRAZ-227 PO
[2023-10-18 10:43] LABS: Basophils # (auto) 0.1 10 ^3/uL (0-0.2); Basophils % (auto) 0.6 % (0.0-2.0); Eosinophils # (auto) 0.5 10 ^3/uL (0-0.8); Eosinophils % (auto) 4.8 % (0.0-7.0); Hematocrit 41.1 % (36.0-46.0); Hemoglobin 13.9 g/dL (12.2-16.2); Lymphocytes # (auto) 1.5 10 ^3/uL (0.4-5.4); Lymphocytes % (auto) 13.9 % (10.0-50.0); Mean Corpuscular Hemoglobin 27.3 pg (28.0-32.0); Mean Corpuscular Hgb Conc. 33.8 g/dL (32.0-36.0); Mean Corpuscular Volume 80.8 fL (80.0-100.0); Monocytes # (auto) 0.6 10 ^3/uL (0-1.3); Monocytes % (auto) 5.4 % (0.0-12.0); Neutrophils % (auto) 75.3 % (37.0-80.0); Platelet Count (auto) 241 10^3/uL (140-450); Red Blood Cells 5.08 10^6/uL (4.0-5.20); Red Cell Distribution Width 15.8 % (11.8-14.3); White Blood Cell 10.7 10^3/uL (4.4-10.8)
[2023-10-18 11:01] LABS: Alanine Aminotransferase 22 U/L (7-40); Albumin 4.5 g/dL (3.2-4.8); Alkaline Phosphatase 111 U/L (46-116); Aspartate Aminotransferase 24 U/L (13-40); Calcium 10.3 mg/dL (8.7-10.4); Carbon Dioxide 25 mmol/L (20-30); Chloride 108 mmol/L (98-107); Glucose 107 mg/dL (74-106); Potassium 4.1 mmol/L (3.5-5.1); Sodium 141 mmol/L (136-145)
[2023-10-18 11:02] LABS: Anion Gap 8 (5-15); BUN/Creatinine Ratio 32.4 (10.0-20.0); Bilirubin, Total 0.5 mg/dL (0.2-1.0); Blood Urea Nitrogen 24 mg/dL (9-23); Total Protein 7.5 g/dL (5.7-8.2)
[2023-10-18] MEDS: SODIUM CHLORIDE 0.9% 1,000 ML IV ONE (11:12)
[2023-10-18] MEDS: ONDANSETRON HCL 4 MG/2 ML VIAL IV ONE ×2 (11:12→12:31)
[2023-10-18] MEDS: MORPHINE SULFATE 4 MG/ML SYR/VIAL IV ONE ×3 (11:13→17:22)
[2023-10-18] MEDS ORDERED: HYDROmorphone HCL 2 MG/ML VL/or syr IV ONE (12:15)
[2023-10-18 15:17] VITALS: PULSE 86; RESP 26; O2SAT 98
[2023-10-18] MEDS ORDERED: ONDANSETRON HCL 4 MG/2 ML VIAL IV PRN (16:45)
[2023-10-18] MEDS ORDERED: MORPHINE SULFATE INJ 2 MG/ml SYRG IV PRN (16:45)
[2023-10-18] MEDS: TAMSULOSIN HYDROCHLORIDE 0.4 MG CAP PO SCH (17:22)
[2023-10-18] MEDS: LACTATED RINGER'S 1,000 ML IV ONE (17:23)
[2023-10-18] MEDS: PANTOPRAZOLE 40 MG/10 ML VIAL INJ IV SCH (17:23)
[2023-10-18] MEDS: cefTRIAXone 1GM/50ML D5W 50 ML IV ONE (17:23)
[2023-10-18 19:26] VITALS: PULSE 109; RESP 31; O2SAT 98
[2023-10-18] MEDS: SODIUM CHLOR 0.9% PF (SALINE LOCK) 10ML VIAL/SYR IV SCH (22:03)
[2023-10-18] MEDS: HYDROcodone-ACET 5/325MG TAB PO PRN (22:23)
[2023-10-19] VITALS (8 sets, daily range): BP systolic 119–129; BP diastolic 69–83; PULSE 91–131; RESP 16–22; TEMP 98.1–100.3; O2SAT 92–100
[2023-10-19 04:22] LABS: Basophils # (auto) 0 10 ^3/uL (0-0.2); Basophils % (auto) 0.3 % (0.0-2.0); Eosinophils # (auto) 0.1 10 ^3/uL (0-0.8); Eosinophils % (auto) 0.3 % (0.0-7.0); Hemoglobin 13.9 g/dL (12.2-16.2); Lymphocytes # (auto) 1.6 10 ^3/uL (0.4-5.4); Lymphocytes % (auto) 10.6 % (10.0-50.0); Mean Corpuscular Hgb Conc. 33.1 g/dL (32.0-36.0); Mean Corpuscular Volume 81.4 fL (80.0-100.0); Monocytes # (auto) 1.1 10 ^3/uL (0-1.3); Monocytes % (auto) 7.1 % (0.0-12.0); Neutrophils # (auto) 12.6 10 ^3/uL (1.6-8.6); Neutrophils % (auto) 81.7 % (37.0-80.0); Platelet Count (auto) 189 10^3/uL (140-450); Red Blood Cells 5.16 10^6/uL (4.0-5.20); Red Cell Distribution Width 15.5 % (11.8-14.3); White Blood Cell 15.4 10^3/uL (4.4-10.8)
[2023-10-19 04:33] LABS: Alanine Aminotransferase 21 U/L (7-40); Albumin 4.1 g/dL (3.2-4.8); Alkaline Phosphatase 95 U/L (46-116); Anion Gap 10 (5-15); Aspartate Aminotransferase 22 U/L (13-40); BUN/Creatinine Ratio 27.5 (10.0-20.0); Blood Urea Nitrogen 25 mg/dL (9-23); Calcium 9.7 mg/dL (8.7-10.4); Carbon Dioxide 22 mmol/L (20-30); Chloride 110 mmol/L (98-107); Glucose 107 mg/dL (74-106); Potassium 3.6 mmol/L (3.5-5.1); Sodium 142 mmol/L (136-145)
[2023-10-19 04:34] LABS: Bilirubin, Total 0.5 mg/dL (0.2-1.0); Total Protein 6.9 g/dL (5.7-8.2)
[2023-10-19 06:07] LABS: Urine Blood 3+ /uL (Negative); Urine Clarity Turbid (Clear); Urine Color Light-Orange (Yellow); Urine Protein, UAD 2+ (Negative); Urine Specific Gravity 1.013 (1.001-1.035); Urine Urobilinogen Normal (Negative)
[2023-10-19] MEDS: MANNITOL FTV 25% 12.5 GM/50 ML 50 ML IV ONE (08:28)
[2023-10-19] MEDS ORDERED: DULOXETINE HCL 40 MG PO SCH (10:00)
[2023-10-19] MEDS: LEVOTHYROXINE SODIUM 50 MCG TAB PO ONE (10:21)
[2023-10-19] MEDS: PANTOPRAZOLE 40 MG TAB PO ONE (10:21)
[2023-10-19] MEDS: SODIUM CHLORIDE 0.9% 1,000 ML IV SCH (11:20)
[2023-10-19] MEDS: cefTRIAXone 1GM/50ML D5W 50 ML IV SCH (11:20)
[2023-10-19] MEDS ORDERED: LAMO150T26 PO (15:36)
[2023-10-19 15:58] LABS: Free T4 (Free Thyroxine) 1.38 ng/dL (0.89-1.76); T3 Total 1.16 ng/mL (0.60-1.81)
[2023-10-19] MEDS: ACETAMINOPHEN 325 MG TAB PO PRN (20:16)
[2023-10-20] VITALS (8 sets, daily range): BP systolic 103–162; BP diastolic 62–83; PULSE 65–93; RESP 16–98; TEMP 97.9–99.8; O2SAT 97–100
[2023-10-20] MEDS: traMADol HCL 50 MG TAB PO PRN (01:05)
[2023-10-20] MEDS: PANTOPRAZOLE 40 MG TAB PO SCH (05:16)
[2023-10-20] MEDS ORDERED: LEVOTHYROXINE SODIUM 50 MCG TAB PO SCH (06:00)
[2023-10-20] MEDS: DOCUSATE SOD 100 MG CAP PO PRN (06:04)
[2023-10-20 07:12] LABS: Basophils # (auto) 0 10 ^3/uL (0-0.2); Basophils % (auto) 0.3 % (0.0-2.0); Eosinophils # (auto) 0.3 10 ^3/uL (0-0.8); Eosinophils % (auto) 3.5 % (0.0-7.0); Hematocrit 35.2 % (36.0-46.0); Lymphocytes % (auto) 11.3 % (10.0-50.0); Mean Corpuscular Hemoglobin 27.3 pg (28.0-32.0); Mean Corpuscular Hgb Conc. 34.1 g/dL (32.0-36.0); Mean Corpuscular Volume 80.1 fL (80.0-100.0); Monocytes # (auto) 0.6 10 ^3/uL (0-1.3); Monocytes % (auto) 6.7 % (0.0-12.0); Neutrophils # (auto) 7.3 10 ^3/uL (1.6-8.6); Neutrophils % (auto) 78.2 % (37.0-80.0); Nucleated Red Blood Cells % 0.1 %; Platelet Count (auto) 150 10^3/uL (140-450); Red Cell Distribution Width 15.3 % (11.8-14.3); White Blood Cell 9.3 10^3/uL (4.4-10.8)
[2023-10-20 07:23] LABS: Anion Gap 9 (5-15); Carbon Dioxide 22 mmol/L (20-30); Chloride 105 mmol/L (98-107); Potassium 3.5 mmol/L (3.5-5.1)
[2023-10-20 07:25] LABS: Calcium 9.9 mg/dL (8.7-10.4)
[2023-10-20 07:30] LABS: Blood Urea Nitrogen 20 mg/dL (9-23); Glucose 93 mg/dL (74-106)
[2023-10-20 07:31] LABS: Sodium 136 mmol/L (136-145)
[2023-10-20] MEDS: IBUPROFEN 400 MG TAB PO PRN (11:23)
[2023-10-20] MEDS: predniSONE 5 MG TAB PO SCH (15:50)
[2023-10-20] MEDS: IPRATROPIUM BROM 0.5 MG/2.5ML INH SOL NEB PRN (18:06)
[2023-10-20] MEDS: ALBUTEROL SULF 2.5 MG/0.5ML(0.5%) NEB SOLN NEB PRN (18:06)
[2023-10-21] VITALS (9 sets, daily range): BP systolic 119–150; BP diastolic 59–78; PULSE 76–86; RESP 17–18; TEMP 36.7; O2SAT 96–99
[2023-10-21 11:19] LABS: Chloride 111 mmol/L (98-107); Potassium 3.4 mmol/L (3.5-5.1); Sodium 141 mmol/L (136-145)
[2023-10-21 11:20] LABS: Anion Gap 10 (5-15); Basophils # (auto) 0 10 ^3/uL (0-0.2); Basophils % (auto) 0.2 % (0.0-2.0); Calcium 9.1 mg/dL (8.7-10.4); Carbon Dioxide 20 mmol/L (20-30); Eosinophils # (auto) 0.1 10 ^3/uL (0-0.8); Eosinophils % (auto) 0.9 % (0.0-7.0); Hematocrit 33.9 % (36.0-46.0); Hemoglobin 11.6 g/dL (12.2-16.2); Lymphocytes # (auto) 0.9 10 ^3/uL (0.4-5.4); Lymphocytes % (auto) 15.3 % (10.0-50.0); Mean Corpuscular Hemoglobin 27.7 pg (28.0-32.0); Mean Corpuscular Hgb Conc. 34.2 g/dL (32.0-36.0); Mean Corpuscular Volume 80.9 fL (80.0-100.0); Monocytes # (auto) 0.4 10 ^3/uL (0-1.3); Monocytes % (auto) 5.8 % (0.0-12.0); Neutrophils # (auto) 4.7 10 ^3/uL (1.6-8.6); Neutrophils % (auto) 77.8 % (37.0-80.0); Nucleated Red Blood Cells % 0.1 %; Platelet Count (auto) 154 10^3/uL (140-450); Red Blood Cells 4.19 10^6/uL (4.0-5.20); Red Cell Distribution Width 15.3 % (11.8-14.3)
[2023-10-21 11:25] LABS: BUN/Creatinine Ratio 33.3 (10.0-20.0); Blood Urea Nitrogen 22 mg/dL (9-23); Glucose 149 mg/dL (74-106)
[2023-10-21] MEDS ORDERED: CEPH250C PO (13:23)
[2023-10-21] MEDS: busPIRone HCL 10 MG TAB PO SCH (13:45)
[2023-10-21] MEDS: POTASSIUM EFFERVESENT TAB 25 MEQ PO ONE (13:45)
[2023-10-21] MEDS: ROPINIROLE 2 MG TABLET PO SCH (18:00)
[2023-10-21] MEDS: lamoTRIgine 100 MG TAB PO SCH (18:00)
[2023-10-22] MEDS ORDERED: DULoxetine HCL 30 MG CAP PO SCH (10:00)
== END 2023-10-21 18:24 | disposition home or self-care (01) | DRG 463 ==
LOC: ER 09:44 → EDBD 09:44 → OVERFLOW 16:39 → CENTRAL 10-19 13:48
PROVIDERS: ADMIT Internal Medicine; ATTEND Internal Medicine
DX: N13.6 Pyonephrosis (principal); J96.10 Chronic respiratory failure, unspecified whether with hypoxia or hypercapnia; J84.10 Pulmonary fibrosis, unspecified; K44.9 Diaphragmatic hernia without obstruction or gangrene; E05.90 Thyrotoxicosis, unspecified without thyrotoxic crisis or storm; F32.A Depression, unspecified; K21.9 Gastro-esophageal reflux disease without esophagitis; E78.5 Hyperlipidemia, unspecified; M06.9 Rheumatoid arthritis, unspecified; G62.9 Polyneuropathy, unspecified; Z86.73 Personal history of transient ischemic attack (TIA), and cerebral infarction without residual deficits; Z90.49 Acquired absence of other specified parts of digestive tract; Z90.710 Acquired absence of both cervix and uterus; Z83.3 Family history of diabetes mellitus; Z82.49 Family history of ischemic heart disease and other diseases of the circulatory system; Z82.5 Family history of asthma and other chronic lower respiratory diseases; Z80.3 Family history of malignant neoplasm of breast; Z88.8 Allergy status to other drugs, medicaments and biological substances; Z79.82 Long term (current) use of aspirin; Z79.899 Other long term (current) drug therapy; Z87.891 Personal history of nicotine dependence
CPT/HCPCS: 36415; 71045; 74176; 80048; 80053; 81003; 82570; 83036; 84439; 84443; 84480; 85025; 87086; 93005; 94640; 97110; 97116; 97163; 97530; A4565; G0378; J2405

== ENCOUNTER → 2023-10-28 | Outpatient (CLI) | payer MEDICAID ==
[~2023-10-28] MED LIST changes: -AZIT500T66 PO; -BUSP5TAB51 PO; +CEPH250C PO; -CLON0.5T3 PO; -DULO40CA PO; -HYDR-4833 PO; -LAMO100T44 PO; +LAMO150T26 PO; -PRED20TA2 PO
[2023-10-28 12:08] LABS: Urine Bacteria None Seen /hpf (None Seen)
[2023-10-28 13:08] LABS: Basophils # (auto) 0 10 ^3/uL (0-0.2); Basophils % (auto) 0.4 % (0.0-2.0); Eosinophils # (auto) 0.4 10 ^3/uL (0-0.8); Hematocrit 39.6 % (36.0-46.0); Hemoglobin 13.5 g/dL (12.2-16.2); Lymphocytes # (auto) 2.5 10 ^3/uL (0.4-5.4); Lymphocytes % (auto) 22.6 % (10.0-50.0); Mean Corpuscular Hemoglobin 27.4 pg (28.0-32.0); Mean Corpuscular Volume 80.5 fL (80.0-100.0); Monocytes # (auto) 0.7 10 ^3/uL (0-1.3); Neutrophils # (auto) 7.3 10 ^3/uL (1.6-8.6); Platelet Count (auto) 270 10^3/uL (140-450); Red Blood Cells 4.92 10^6/uL (4.0-5.20); Red Cell Distribution Width 15.6 % (11.8-14.3); White Blood Cell 10.9 10^3/uL (4.4-10.8)
[2023-10-28 13:24] LABS: Urine Blood Negative /uL (Negative); Urine Clarity Clear (Clear); Urine Color Light-Yellow (Yellow); Urine Protein, UAD TRACE (Negative); Urine Specific Gravity 1.022 (1.001-1.035); Urine Urobilinogen Normal (Negative); Urine WBC 3 /hpf (0 - 5)
[2023-10-28 13:28] LABS: Alanine Aminotransferase 25 U/L (7-40); Albumin 4.6 g/dL (3.2-4.8); Alkaline Phosphatase 116 U/L (46-116); Anion Gap 9 (5-15); Aspartate Aminotransferase 26 U/L (13-40); BUN/Creatinine Ratio 32.5 (10.0-20.0); Bilirubin, Total 0.3 mg/dL (0.2-1.0); Blood Urea Nitrogen 25 mg/dL (9-23); Calcium 10.4 mg/dL (8.7-10.4); Carbon Dioxide 22 mmol/L (20-30); Chloride 105 mmol/L (98-107); Cholesterol 177 mg/dL (< 200); Glucose 88 mg/dL (74-106); HDL Cholesterol 59 mg/dL (40-59); LDL Cholesterol 96 mg/dL (< 100); Potassium 4.3 mmol/L (3.5-5.1); Sodium 136 mmol/L (136-145); Total Protein 7.8 g/dL (5.7-8.2); Triglycerides 186 mg/dL (< 150)
== END | disposition home or self-care (01) ==
LOC: LAB 11:52
DX: Z00.01 Encounter for general adult medical examination with abnormal findings (principal); Z12.11 Encounter for screening for malignant neoplasm of colon; E03.9 Hypothyroidism, unspecified; E78.5 Hyperlipidemia, unspecified; J84.10 Pulmonary fibrosis, unspecified
CPT/HCPCS: 36415; 80053; 80061; 81001; 82274; 82306; 83036; 84439; 84443; 85025

== ENCOUNTER → 2023-11-08 | Outpatient (CLI) | payer MEDICAID ==
[2023-11-08 12:20] LABS: Basophils # (auto) 0.1 10 ^3/uL (0-0.2); Eosinophils # (auto) 0.3 10 ^3/uL (0-0.8); Hemoglobin 13.4 g/dL (12.2-16.2); Lymphocytes # (auto) 1.9 10 ^3/uL (0.4-5.4); Monocytes # (auto) 0.5 10 ^3/uL (0-1.3)
[2023-11-08 12:22] LABS: Basophils % (auto) 0.9 % (0.0-2.0); Eosinophils % (auto) 4.4 % (0.0-7.0); Hematocrit 40.8 % (36.0-46.0); Lymphocytes % (auto) 27.4 % (10.0-50.0); Mean Corpuscular Hemoglobin 26.5 pg (28.0-32.0); Mean Corpuscular Volume 80.5 fL (80.0-100.0); Neutrophils # (auto) 4.1 10 ^3/uL (1.6-8.6); Neutrophils % (auto) 60.3 % (37.0-80.0); Nucleated Red Blood Cells % 0.1 %; Platelet Count (auto) 302 10^3/uL (140-450); Red Blood Cells 5.06 10^6/uL (4.0-5.20); Red Cell Distribution Width 15.4 % (11.8-14.3); White Blood Cell 6.7 10^3/uL (4.4-10.8)
== END | disposition home or self-care (01) ==
LOC: LAB 12:03
DX: N39.0 Urinary tract infection, site not specified (principal)
CPT/HCPCS: 36415; 85025; 87086

== ENCOUNTER → 2023-12-10 | Outpatient (CLI) | payer MEDICAID ==
[2023-12-10 13:22] LABS: Basophils # (auto) 0.1 10 ^3/uL (0-0.2); Basophils % (auto) 0.6 % (0.0-2.0); Eosinophils # (auto) 0.5 10 ^3/uL (0-0.8); Hemoglobin 13.3 g/dL (12.2-16.2); Lymphocytes % (auto) 25.1 % (10.0-50.0); Mean Corpuscular Hemoglobin 27.7 pg (28.0-32.0); Mean Corpuscular Hgb Conc. 34.1 g/dL (32.0-36.0); Mean Corpuscular Volume 81.4 fL (80.0-100.0); Monocytes # (auto) 0.5 10 ^3/uL (0-1.3); Monocytes % (auto) 6.7 % (0.0-12.0); Neutrophils # (auto) 4.9 10 ^3/uL (1.6-8.6); Neutrophils % (auto) 61.6 % (37.0-80.0); Platelet Count (auto) 220 10^3/uL (140-450); Red Blood Cells 4.79 10^6/uL (4.0-5.20); Red Cell Distribution Width 14.5 % (11.8-14.3)
[2023-12-10 13:32] LABS: Alanine Aminotransferase 29 U/L (7-40); Alkaline Phosphatase 100 U/L (46-116); Anion Gap 9 (5-15); Calcium 10.6 mg/dL (8.7-10.4); Carbon Dioxide 24 mmol/L (20-31); Chloride 106 mmol/L (98-107); Potassium 4.2 mmol/L (3.5-5.1); Sodium 139 mmol/L (136-145); Triglycerides 112 mg/dL (< 150)
[2023-12-10 13:33] LABS: Aspartate Aminotransferase 32 U/L (13-40); BUN/Creatinine Ratio 18.9 (10.0-20.0); Blood Urea Nitrogen 14 mg/dL (9-23); Glucose 96 mg/dL (74-106)
[2023-12-10 13:34] LABS: LDL Cholesterol 107 mg/dL (< 100)
[2023-12-10 13:35] LABS: Albumin 4.6 g/dL (3.2-4.8); Bilirubin, Direct 0.1 mg/dL (<0.3); Cholesterol 197 mg/dL (< 200); HDL Cholesterol 77 mg/dL (40-59)
[2023-12-10 13:36] LABS: Bilirubin, Total 0.4 mg/dL (0.2-1.0); Total Protein 7.9 g/dL (5.7-8.2)
== END | disposition home or self-care (01) ==
LOC: LAB 12:09
DX: I10 Essential (primary) hypertension (principal); E83.40 Disorders of magnesium metabolism, unspecified; E11.9 Type 2 diabetes mellitus without complications; E03.9 Hypothyroidism, unspecified; E78.5 Hyperlipidemia, unspecified; D64.9 Anemia, unspecified; R68.89 Other general symptoms and signs
CPT/HCPCS: 36415; 80053; 80061; 82248; 82306; 84443; 85025

== ENCOUNTER → 2024-07-14 | Outpatient (CLI) | payer MEDICAID ==
[2024-07-14 10:30] LABS: Urine Blood Negative /uL (Negative); Urine Clarity Turbid (Clear); Urine Color Yellow (Yellow); Urine Protein, UAD Negative (Negative); Urine Specific Gravity 1.022 (1.001-1.035); Urine Urobilinogen 6 mg/dL (Negative); Urine pH 6.5 (5.0-9.0)
[2024-07-14 10:39] LABS: Basophils # (auto) 0.1 10 ^3/uL (0-0.2); Eosinophils # (auto) 0.3 10 ^3/uL (0-0.8); Eosinophils % (auto) 4.8 % (0.0-7.0); Hematocrit 42.6 % (36.0-46.0); Hemoglobin 13.9 g/dL (12.2-16.2); Lymphocytes # (auto) 1.8 10 ^3/uL (0.4-5.4); Lymphocytes % (auto) 30.3 % (10.0-50.0); Mean Corpuscular Hemoglobin 26.2 pg (28.0-32.0); Mean Corpuscular Hgb Conc. 32.8 g/dL (32.0-36.0); Mean Corpuscular Volume 80.1 fL (80.0-100.0); Monocytes # (auto) 0.3 10 ^3/uL (0-1.3); Neutrophils # (auto) 3.5 10 ^3/uL (1.6-8.6); Neutrophils % (auto) 58.9 % (37.0-80.0); Nucleated Red Blood Cells % 0.3 %; Platelet Count (auto) 216 10^3/uL (140-450); Red Blood Cells 5.31 10^6/uL (4.0-5.20); Red Cell Distribution Width 17.1 % (11.8-14.3); White Blood Cell 5.9 10^3/uL (4.4-10.8)
[2024-07-14 11:23] LABS: Alanine Aminotransferase 16 U/L (7-40); Albumin 4.7 g/dL (3.2-4.8); Alkaline Phosphatase 89 U/L (46-116); Anion Gap 9 (5-15); Aspartate Aminotransferase 27 U/L (13-40); BUN/Creatinine Ratio 25.7 (10.0-20.0); Blood Urea Nitrogen 19 mg/dL (9-23); Carbon Dioxide 23 mmol/L (20-31); Cholesterol 190 mg/dL (< 200); Glucose 86 mg/dL (74-106); Potassium 4.2 mmol/L (3.5-5.1); Sodium 140 mmol/L (136-145); Total Protein 8.2 g/dL (5.7-8.2); Triglycerides 136 mg/dL (< 150)
[2024-07-14 11:24] LABS: Bilirubin, Total 0.5 mg/dL (0.2-1.0)
[2024-07-14 11:26] LABS: Free T4 (Free Thyroxine) 1.69 ng/dL (0.89-1.76)
[2024-07-14 11:37] LABS: Calcium 10.9 mg/dL (8.7-10.4); Chloride 108 mmol/L (98-107); HDL Cholesterol 65 mg/dL (40-59); LDL Cholesterol 105 mg/dL (< 100)
== END | disposition home or self-care (01) ==
LOC: LAB 10:04
PROVIDERS: ATTEND Nurse Practitioner Family
DX: E03.9 Hypothyroidism, unspecified (principal); E55.9 Vitamin D deficiency, unspecified; E78.5 Hyperlipidemia, unspecified; N39.0 Urinary tract infection, site not specified; D64.9 Anemia, unspecified
CPT/HCPCS: 36415; 80053; 80061; 81003; 82306; 82607; 83036; 84439; 84443; 85025; 87086

== ENCOUNTER → 2024-08-16 | Outpatient (CLI) | payer MEDICAID ==
[2024-08-16 12:24] LABS: Hematocrit 41.4 % (36.0-46.0); Hemoglobin 13.9 g/dL (12.2-16.2); Mean Corpuscular Hemoglobin 26.8 pg (28.0-32.0); Mean Corpuscular Volume 80.0 fL (80.0-100.0); Nucleated Red Blood Cells % 0.2 %
[2024-08-16 12:52] LABS: Alanine Aminotransferase 11 U/L (7-40); Albumin 4.4 g/dL (3.2-4.8); Alkaline Phosphatase 75 U/L (46-116); Anion Gap 13 (5-15); BUN/Creatinine Ratio 37.1 (10.0-20.0); Carbon Dioxide 22 mmol/L (20-31); Chloride 105 mmol/L (98-107); Cholesterol 179 mg/dL (< 200); Glucose 87 mg/dL (74-106); Potassium 3.8 mmol/L (3.5-5.1); Sodium 140 mmol/L (136-145); Total Protein 7.5 g/dL (5.7-8.2); Triglycerides 132 mg/dL (< 150)
[2024-08-16 12:53] LABS: Bilirubin, Direct 0.1 mg/dL (<0.3); Bilirubin, Total 0.4 mg/dL (0.2-1.0); Blood Urea Nitrogen 26 mg/dL (9-23); Calcium 10.8 mg/dL (8.7-10.4); HDL Cholesterol 59 mg/dL (40-59)
== END | disposition home or self-care (01) ==
LOC: LAB 12:06
PROVIDERS: ATTEND Specialist
DX: I11.0 Hypertensive heart disease with heart failure (principal); I50.9 Heart failure, unspecified; E11.9 Type 2 diabetes mellitus without complications; E78.5 Hyperlipidemia, unspecified; E03.9 Hypothyroidism, unspecified; D64.9 Anemia, unspecified; R68.89 Other general symptoms and signs
CPT/HCPCS: 36415; 80053; 80061; 82248; 83036; 84443; 85025